=== PATIENT | female | born 1965 | race Caucasian/White ===

== ENCOUNTER 2018-11-27 22:15 | Emergency (ER) | payer OTHER ==
[~2018-11-27] VITALS: Ht 167.6 cm; Wt 65.9 kg
[2018-11-27 22:22] VITALS: BP 122/79; PULSE 69; TEMP 97.7
== END 2018-11-28 00:08 | disposition left against medical advice (07) ==
LOC: COL.ER 22:15
DX: R10.11 Right upper quadrant pain (principal)